=== PATIENT | male | born 1985 | race Caucasian/White ===

== ENCOUNTER 2017-09-28 19:57 | Emergency (ER) | payer OTHER ==
--- NOTE | 2017-09-28 20:06 | ED ---
General Adult HPI - General Stated complaint: mental health Time Seen by Provider: 09/28/17 20:00 Source: RN notes reviewed, old records reviewed - History of Present Illness Initial comments: This is a 32-year-old male to ER for evaluation of suicidal evaluation. Patient was congestion [place] for evaluation regarding suicidal thoughts. This was picked up at his house by [employer] time became very combative. EMS and PD bring patient in continue to be combative, not cooperating with history - Related Data Allergies Allergy/AdvReac Type Severity Reaction Status Date / Time No Known Allergies Allergy Verified 09/28/17 20:18 Review of Systems ROS Statement: Those systems with pertinent positive or pertinent negative responses have been documented in the HPI. ROS Other: All systems not noted in ROS Statement are negative. General Exam Limitations: altered mental status General appearance: alert, appears intoxicated Head exam: Present: atraumatic, normocephalic, normal inspection Eye exam: Present: normal appearance, PERRL, EOMI. Absent: scleral icterus, conjunctival injection, periorbital swelling ENT exam: Present: normal exam, mucous membranes moist Neck exam: Present: normal inspection. Absent: tenderness, meningismus, lymphadenopathy Respiratory exam: Present: normal lung sounds bilaterally. Absent: respiratory distress, wheezes, rales, rhonchi, stridor Cardiovascular Exam: Present: regular rate, normal rhythm, normal heart sounds. Absent: systolic murmur, diastolic murmur, rubs, gallop, clicks GI/Abdominal exam: Present: soft, normal bowel sounds. Absent: distended, tenderness, guarding, rebound, rigid Extremities exam: Present: normal inspection, full ROM, normal capillary refill. Absent: tenderness, pedal edema, joint swelling, calf tenderness Back exam: Present: normal inspection Neurological exam: Present: alert, oriented X3, CN II-XII intact Psychiatric exam: Present: agitated Skin exam: Present: warm, dry, intact, normal color. Absent: rash Course Vital Signs 09/28/17 09/29/17 09/29/17 20:18 04:32 10:00 Temperature 97.1 F L 98.0 F Pulse Rate 68 76 74 Respiratory 18 16 20 Rate Blood Pressure 135/79 114/64 128/70 O2 Sat by Pulse 96 100 98 Oximetry Medical Decision Making - Medical Decision Making 32 male seen and evaluated with psychiatry, patient is discharged home - Lab Data Result diagrams: 09/28/17 21:34 09/28/17 21:34 Lab Results 09/28/17 09/28/17 09/29/17 Range/Units 21:34 21:34 04:28 WBC 6.5 (3.8-10.6) k/uL RBC 5.24 (4.30-5.90) m/uL Hgb 15.5 (13.0-17.5) gm/dL Hct 47.9 (39.0-53.0) % MCV 91.3 (80.0-100.0) fL MCH 29.5 (25.0-35.0) pg MCHC 32.3 (31.0-37.0) g/dL RDW 14.4 (11.5-15.5) % Plt Count 210 (150-450) k/uL Neutrophils % 67 % Lymphocytes % 19 % Monocytes % 6 % Eosinophils % 6 % Basophils % 1 % Neutrophils # 4.3 (1.3-7.7) k/uL Lymphocytes # 1.2 (1.0-4.8) k/uL Monocytes # 0.4 (0-1.0) k/uL Eosinophils # 0.4 (0-0.7) k/uL Basophils # 0.0 (0-0.2) k/uL Sodium 142 (137-145) mmol/L Potassium 3.7 (3.5-5.1) mmol/L Chloride 107 (98-107) mmol/L Carbon Dioxide 21 L (22-30) mmol/L Anion Gap 14 mmol/L BUN 12 (9-20) mg/dL Creatinine 0.98 (0.66-1.25) mg/dL Est GFR (MDRD) Af Amer >60 (>60 ml/min/1.73 sqM) Est GFR (MDRD) Non-Af >60 (>60 ml/min/1.73 sqM) Glucose 102 H (74-99) mg/dL Calcium 9.2 (8.4-10.2) mg/dL Urine Color Light Yellow Urine Appearance Clear (Clear) Urine pH 5.5 (5.0-8.0) Ur Specific [place] 1.003 (1.001-1.035) Urine Protein Negative (Negative) Urine Glucose (UA) Negative (Negative) Urine Ketones Negative (Negative) Urine Blood Negative (Negative) Urine Nitrite Negative (Negative) Urine Bilirubin Negative (Negative) Urine Urobilinogen <2.0 (<2.0) mg/dL Ur Leukocyte Esterase Negative (Negative) Salicylates <1.0 mg/dL Urine Opiates Screen Detected H (NotDetected) Ur Oxycodone Screen Not Detected (NotDetected) Urine Methadone Screen Not Detected (NotDetected) Ur Propoxyphene Screen Not Detected (NotDetected) Acetaminophen <10.0 ug/mL Ur Barbiturates Screen Not Detected (NotDetected) U Tricyclic Antidepress Not Detected (NotDetected) Ur Phencyclidine Scrn Not Detected (NotDetected) Ur Amphetamines Screen Not Detected (NotDetected) U Methamphetamines Scrn Not Detected (NotDetected) U Benzodiazepines Scrn Not Detected (NotDetected) Urine Cocaine Screen Not Detected (NotDetected) U Marijuana (THC) Screen Detected H (NotDetected) Serum Alcohol 225 mg/dL Disposition Clinical Impression: Adjustment reaction, Alcohol intoxication Disposition: HOME SELF-CARE Condition: Good Instructions: Stress (ED), Mood Disorders (ED), Alcohol Intoxication (ED) Additional Instructions: Follow-up outpatient as per the psychiatric service. Referrals: None,Stated [Primary Care Provider] - 1-2 days
[2017-09-28] MEDS ORDERED: LORazepam 2 MG/ML INJ IM STA (20:17)
[2017-09-28] MEDS ORDERED: diphenhydrAMINE 50 MG/ML 1 ML VIAL IM STA (20:17)
[2017-09-28 21:42] LABS: Basophils % (A) 1 %; CH 30.3; CHCM 33.3; Eosinophils # (A) 0.4 k/uL (0-0.7); Eosinophils % (A) 6 %; HCT 47.9 % (39.0-53.0); HDW 2.17; HGB 15.5 gm/dL (13.0-17.5); Luc # (Auto) 0.11; Luc % (Auto) 2; Lymphocytes # (A) 1.2 k/uL (1.0-4.8); Lymphocytes % (A) 19 %; MCH 29.5 pg (25.0-35.0); MCHC 32.3 g/dL (31.0-37.0); MCV 91.3 fL (80.0-100.0); Mean Platelet Volume 8.4; Monocytes # (A) 0.4 k/uL (0-1.0); Monocytes % (A) 6 %; Neutrophils # (A) 4.3 k/uL (1.3-7.7); Neutrophils % (A) 67 %; RBC 5.24 m/uL (4.30-5.90); RDW 14.4 % (11.5-15.5); WBC 6.5 k/uL (3.8-10.6); WBC (Perox) 6.53
[2017-09-28 21:51] LABS: Acetaminophen <10.0 ug/mL; Anion Gap 14 mmol/L; Blood Urea Nitrogen 12 mg/dL (9-20); Calcium 9.2 mg/dL (8.4-10.2); Carbon Dioxide 21 mmol/L (22-30); Chloride 107 mmol/L (98-107); Glucose 102 mg/dL (74-99); Non-African American GFR(MDRD) >60 (>60 ml/min/1.73 sqM); Potassium 3.7 mmol/L (3.5-5.1); Salicylate <1.0 mg/dL; Sodium 142 mmol/L (137-145)
[2017-09-28 21:53] LABS: Alcohol 225 mg/dL
--- NOTE | 2017-09-29 04:20 | CDI ---
Documentation Clarification OP Dear Bladimir Vides Please do addendum to ED report for missing clinical impression. Thank you, Chon Tay It Analyst If you have any questions, please contact Educational Guidance Counselor at [phone] [facility]
[2017-09-29 04:42] LABS: Appearance,Urine Clear (Clear); Bilirubin,Urine Negative (Negative); Glucose,Urine (UA) Negative (Negative); Ketones,Urine Negative (Negative); Leukocyte Esterase,Urine Negative (Negative); Nitrite,Urine Negative (Negative); PH, Urine 5.5 (5.0-8.0); Protein,Urine Negative (Negative); Specific Gravity,Urine 1.003 (1.001-1.035); UA Billing (MACRO vs. MICRO) CHEM; Urobilinogen,Urine <2.0 mg/dL (<2.0)
--- NOTE | 2017-09-29 06:34 | XR ---
EXAM: XR Right Forearm, 2 Views CLINICAL HISTORY: Pain status post restraints. TECHNIQUE: Frontal and lateral views of the right forearm. COMPARISON: No relevant prior studies available. FINDINGS: Bones/joints: Unremarkable. No acute fracture. No dislocation. Soft tissues: No significant soft tissue swelling. IMPRESSION: No radiographic evidence of acute osseous injury.
--- NOTE | 2017-09-29 06:37 | XR ---
EXAM: XR Right Hand Complete, 3 or More Views CLINICAL HISTORY: Pain status post restraints. TECHNIQUE: Frontal, lateral and oblique views of the right hand. COMPARISON: No relevant prior studies available. FINDINGS: Bones/joints: Subtle linear lucency is seen involving the ulnar styloid process raising concern for a nondisplaced non-comminuted fracture. No dislocation. Soft tissues: Mild soft tissue swelling is suggested overlying the dorsum of the hand. No radiopaque foreign body. IMPRESSION: Subtle linear lucency involving the ulnar styloid process raising concern for a nondisplaced non-comminuted fracture. Correlate clinically with point tenderness.
--- NOTE | 2017-09-29 10:01 | ED ---
Medical Decision Making - Medical Decision Making The patient was determined to be sober and was evaluated by the psychiatric service. Patient will be discharged with outpatient referrals. He currently is not a risk to himself or anyone else. - Lab Data Result diagrams: 09/28/17 21:34 09/28/17 21:34 Lab Results 09/28/17 09/28/17 09/29/17 Range/Units 21:34 21:34 04:28 WBC 6.5 (3.8-10.6) k/uL RBC 5.24 (4.30-5.90) m/uL Hgb 15.5 (13.0-17.5) gm/dL Hct 47.9 (39.0-53.0) % MCV 91.3 (80.0-100.0) fL MCH 29.5 (25.0-35.0) pg MCHC 32.3 (31.0-37.0) g/dL RDW 14.4 (11.5-15.5) % Plt Count 210 (150-450) k/uL Neutrophils % 67 % Lymphocytes % 19 % Monocytes % 6 % Eosinophils % 6 % Basophils % 1 % Neutrophils # 4.3 (1.3-7.7) k/uL Lymphocytes # 1.2 (1.0-4.8) k/uL Monocytes # 0.4 (0-1.0) k/uL Eosinophils # 0.4 (0-0.7) k/uL Basophils # 0.0 (0-0.2) k/uL Sodium 142 (137-145) mmol/L Potassium 3.7 (3.5-5.1) mmol/L Chloride 107 (98-107) mmol/L Carbon Dioxide 21 L (22-30) mmol/L Anion Gap 14 mmol/L BUN 12 (9-20) mg/dL Creatinine 0.98 (0.66-1.25) mg/dL Est GFR (MDRD) Af Amer >60 (>60 ml/min/1.73 sqM) Est GFR (MDRD) Non-Af >60 (>60 ml/min/1.73 sqM) Glucose 102 H (74-99) mg/dL Calcium 9.2 (8.4-10.2) mg/dL Urine Color Light Yellow Urine Appearance Clear (Clear) Urine pH 5.5 (5.0-8.0) Ur Specific [place] 1.003 (1.001-1.035) Urine Protein Negative (Negative) Urine Glucose (UA) Negative (Negative) Urine Ketones Negative (Negative) Urine Blood Negative (Negative) Urine Nitrite Negative (Negative) Urine Bilirubin Negative (Negative) Urine Urobilinogen <2.0 (<2.0) mg/dL Ur Leukocyte Esterase Negative (Negative) Salicylates <1.0 mg/dL Urine Opiates Screen Detected H (NotDetected) Ur Oxycodone Screen Not Detected (NotDetected) Urine Methadone Screen Not Detected (NotDetected) Ur Propoxyphene Screen Not Detected (NotDetected) Acetaminophen <10.0 ug/mL Ur Barbiturates Screen Not Detected (NotDetected) U Tricyclic Antidepress Not Detected (NotDetected) Ur Phencyclidine Scrn Not Detected (NotDetected) Ur Amphetamines Screen Not Detected (NotDetected) U Methamphetamines Scrn Not Detected (NotDetected) U Benzodiazepines Scrn Not Detected (NotDetected) Urine Cocaine Screen Not Detected (NotDetected) U Marijuana (THC) Screen Detected H (NotDetected) Serum Alcohol 225 mg/dL Disposition Clinical Impression: Adjustment reaction, Alcohol intoxication Disposition: HOME SELF-CARE Condition: Good Instructions: Mood Disorders (ED), Stress (ED), Alcohol Intoxication (ED) Additional Instructions: Follow-up outpatient as per the psychiatric service. Referrals: None,Stated [Primary Care Provider] - 1-2 days
[2017-09-29 10:09] VITALS: BP 128/70; PULSE 74; RESP 20; TEMP 98
== END 2017-09-29 10:10 | disposition home or self-care (01) ==
LOC: EC 19:57
DX: F43.20 Adjustment disorder, unspecified (principal); F10.120 Alcohol abuse with intoxication, uncomplicated
CPT/HCPCS: 82075; 36415; 80048; 85025; 81003; 80306; 83520 ×2; 80320; 73090; 73130; 99285; 96372 ×2; J2060; J1200